=== PATIENT | male | born 1970 | race Caucasian/White ===

== ENCOUNTER 2017-12-26 17:19 | Emergency (ER) | payer BC ==
[2017-12-26 17:34] VITALS: BP 117/71; PULSE 92; RESP 18; TEMP 99
[2017-12-26] MEDS ORDERED: DIPH,PERTUS(ACELL)TETVAC-LF 0.5 ML VIAL IM ONE (18:03)
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
== END 2017-12-26 19:31 | disposition home or self-care (01) ==
LOC: EC 17:19
DX: T22.211A Burn of second degree of right forearm, initial encounter (principal); T23.221A Burn of second degree of single right finger (nail) except thumb, initial encounter; T31.0 Burns involving less than 10% of body surface; Z23 Encounter for immunization; X03.3XXA Fall due to controlled fire, not in building or structure, initial encounter
CPT/HCPCS: 16025; 90471; 90715; 99283

== ENCOUNTER 2024-07-22 23:32 | Emergency (ER) | payer BC ==
[2024-07-22 23:50] VITALS: TEMP 98.2
--- NOTE | 2024-07-23 00:21 | ED ---
Male Urogenital HPI - General Source: patient, RN notes reviewed Mode of arrival: ambulatory Limitations: no limitations <Radha Sheffield - Last Filed: 07/23/24 00:19> <Shwetha Mckeon P - Last Filed: 07/23/24 01:55> - General Chief complaint: Urogenital Stated complaint: Trouble Urinating Time Seen by Provider: 07/23/24 00:19 - History of Present Illness Initial comments: 53-year-old male presented to ER with a chief complaint urinary retention. Patient states since 2 PM he has been unable to successfully urinate. He does report an urge to go. He does report mild suprapubic abdominal pressure due to this. He does not report a history of urinary retention or enlarged prostate. He does take doxazosin as his father had enlarged prostate. Patient denies any fevers, chills, nausea, vomiting. He has been having normal bowel movements. He states he has had multiple bowel movements this evening. No other complaints. (Radha Sheffield) - Related Data Previous Rx's Medication Instructions Recorded SILVER sulfADIAZINE CREAM 1 applic TOPICAL DAILY #1 bottle 12/26/17 [Silvadene Cream] Allergies Allergy/AdvReac Type Severity Reaction Status Date / Time No Known Allergies Allergy Verified 07/22/24 23:51 Review of Systems ROS Other: All systems not noted in ROS Statement are negative. <Radha Sheffield - Last Filed: 07/23/24 00:19> ROS Other: All systems not noted in ROS Statement are negative. <Shwetha Mckeon P - Last Filed: 07/23/24 01:55> ROS Statement: Those systems with pertinent positive or pertinent negative responses have been documented in the HPI. Past Medical History Past Medical History: Prostate Disorder History of Any Multi-Drug Resistant Organisms: None Reported Past Surgical History: No Surgical Hx Reported Past Psychological History: No Psychological Hx Reported Smoking Status: Never smoker Past Alcohol Use History: Occasional Past Drug Use History: None Reported <Radha Sheffield - Last Filed: 07/23/24 00:19> General Exam Limitations: no limitations <Radha Sheffield - Last Filed: 07/23/24 00:19> General appearance: alert, in no apparent distress Head exam: Present: atraumatic, normocephalic Eye exam: Present: PERRL Respiratory exam: Absent: respiratory distress Cardiovascular Exam: Present: regular rate GI/Abdominal exam: Present: soft. Absent: distended Rectal exam: Present: deferred exam: Present: normal inspection, circumcision. Absent: urethral discharge, scrotal swelling Extremities exam: Present: full ROM Back exam: Present: full ROM Neurological exam: Present: alert, oriented X3 Psychiatric exam: Present: normal affect, normal mood Skin exam: Present: warm, dry <Shwetha Mckeon P - Last Filed: 07/23/24 01:55> Course Vital Signs 07/22/24 23:49 Temperature 98.2 F Pulse Rate 88 Respiratory 16 Rate Blood Pressure 133/84 O2 Sat by Pulse 96 Oximetry Medical Decision Making <Shwetha Mckeon P - Last Filed: 07/23/24 01:55> - Medical Decision Making Was pt. sent in by a medical professional or institution (, PA, FLIGHT OPERATION COORDINATOR, urgent care, hospital, or alf...) When possible be specific @ -No Did you speak to anyone other than the patient for history (EMS, parent, family, police, friend...)? What history was obtained from this source @ -No Did you review nursing and triage notes (agree or disagree)? Why? @ -I reviewed and agree with nursing and triage notes Were old charts reviewed (outside hosp., previous admission, EMS record, old EKG, old radiological studies, urgent care reports/EKG's, alf records)? Report findings @ -No old charts were reviewed Differential Diagnosis (chest pain, altered mental status, abdominal pain women, abdominal pain men, vaginal bleeding, weakness, fever, dyspnea, syncope, headache, dizziness, GI bleed, back pain, seizure, CVA, palpatations, mental health)? @ -Not applicable EKG interpreted by me (3pts min.). @ -As above X-rays interpreted by me (1pt min.). @ -None done CT interpreted by me (1pt min.). @ -None done U/S interpreted by me (1pt. min.). @ -None done What testing was considered but not performed or refused? (CT, X-rays, U/S, labs)? Why? @ -None What meds were considered but not given or refused? Why? @ -None Did you discuss the management of the patient with other professionals (professionals i.e. Dr., PA, FLIGHT OPERATION COORDINATOR, lab, RT, psych nurse, health and social care teacher, area field person, teacher, rating officer, block and case maker)? Give summary @ -No Was smoking cessation discussed for >3mins.? @ -No Was critical care preformed (if so, how long)? @ -No Were there social determinants of health that impacted care today? How? (Homelessness, low income, unemployed, alcoholism, drug addiction, transportation, low edu. Level, literacy, decrease access to med. care, [place] [facility], rehab)? @ -No Was there de-escalation of care discussed even if they declined (Discuss DNR or withdrawal of care, Hospice)? DNR status @ -No What co-morbidities impacted this encounter? (DM, HTN, Smoking, COPD, CAD, Cancer, CVA, ARF, Chemo, Hep., AIDS, mental health diagnosis, sleep apnea, morbid obesity)? @ -None Was patient admitted / discharged? Hospital course, mention meds given and route, prescriptions, significant lab abnormalities, going to OR and other pertinent info. @ -Discharged Patient was seen, bladder scan >900, avalos catheter then coude attempted by nursing staff and myself without success. Care was discussed with Dr So who ageed to come in to place catheter, however patient was able to urinate, post void residual 280mL but patient states he has been told he has chronic retention. Offered to keep patient in the ER to ensure he is able to urinate, however patient preferred to be discharged home. Patient will return for any difficulty urinating. Undiagnosed new problem with uncertain prognosis? @ -No Drug Therapy requiring intensive monitoring for toxicity (Heparin, Nitro, Insulin, Cardizem)? @ -No Were any procedures done? @ -No Diagnosis/symptom? @ -Urinary retentionNoNoNoDefaultDefaultNoNoNoNoneNoNoNoNoNoNoneNoneNone doneNone doneNone doneAs aboveNot applicableNo old charts were reviewedI reviewed and agree with nursing and triage notesNoNo Acute, or Chronic, or Acute on Chronic? @ -Default Uncomplicated (without systemic symptoms) or Complicated (systemic symptoms)? @ -Default Side effects of treatment? @ -No Exacerbation, Progression, or Severe Exacerbation? @ -No Poses a threat to life or bodily function? How? (Chest pain, [place], [place], pneumonia, PE, COPD, DKA, ARF, appy, cholecystitis, CVA, Diverticulitis, Homicidal, Suicidal, threat to staff... and all critical care pts) @ -No (Shwetha Mckeon) Disposition <Radha Sheffield - Last Filed: 07/23/24 00:19> Is patient prescribed a controlled substance at d/c from ED?: No <Shwetha Mckeon - Last Filed: 07/23/24 01:55> Clinical Impression: Urinary retention Disposition: HOME SELF-CARE Condition: Stable Additional Instructions: Return to the ER if you are unable to urinate Referrals: Estuardo Frankel MD [Primary Care Provider] - 1-2 days Josias So MD [STAFF PHYSICIAN] - 1-2 days
[2024-07-23] MEDS: LIDOCAINE 2% URO-JET JELLY 5 ML KIT URETHRAL ONE (01:22)
[2024-07-23] MEDS: MORPHINE SULFATE 4 MG/ML SYRINGE IVP STA (01:23)
[2024-07-23 02:03] VITALS: BP 114/75; PULSE 60; RESP 18
== END 2024-07-23 01:27 | disposition home or self-care (01) ==
LOC: EC 23:32
DX: R33.9 Retention of urine, unspecified (principal)
CPT/HCPCS: 51798; 99283